=== PATIENT | female | born 1980 | race Two or more races ===

== ENCOUNTER 2025-08-27 09:06 | Emergency (ER) | payer OTHER ==
[~2025-08-27] VITALS: Ht 157.5 cm; Wt 68.0 kg
[~2025-08-27 09:06] MED LIST: ADIPEX-P37.5 M1
[2025-08-27] MEDS ORDERED: MOUNJARO10 MG/0.5 SQ (09:10)
[2025-08-27] MEDS ORDERED: MEDROL4 MG PO (09:10)
[2025-08-27] MEDS ORDERED: ZESTRIL2.5 MG (09:10)
[2025-08-27] MEDS ORDERED: MOBIC7.5 MG (09:11)
[2025-08-27] MEDS ORDERED: DEXAMETHASONE SODIUM PHOSPHATE 4 MG/ML VIAL IM ONE (10:00)
[2025-08-27] MEDS ORDERED: ORPHENADRINE CITRATE 30 MG/ML AMPUL IM ONE (10:00)
[2025-08-27] MEDS ORDERED: KETOROLAC TROMETHAMINE 60 MG VIAL IM ONE ×2 (10:00→10:18)
[2025-08-27] MEDS ORDERED: ACETAMINOPHEN 500 MG GEL..CAP PO ONE ×2 (10:00→10:19)
[2025-08-27] MEDS ORDERED: ORPHENADRINE CITRATE 30 MG/ML AMPUL ONE (10:18)
[2025-08-27] MEDS ORDERED: DEXAMETHASONE SODIUM PHOSPHATE 4 MG/ML VIAL ONE (10:19)
[2025-08-27] MEDS ORDERED: NORFLEX100MG PO (11:10)
[2025-08-27] MEDS ORDERED: PEPCID AC20 MG PO (11:10)
[2025-08-27] MEDS ORDERED: IBU600 MG PO (11:10)
== END 2025-08-27 12:21 | disposition home or self-care (01) ==
LOC: ER 09:06
DX: M62.838 Other muscle spasm (principal); E11.9 Type 2 diabetes mellitus without complications; Z79.84 Long term (current) use of oral hypoglycemic drugs